=== PATIENT | female | born 1990 | race Caucasian/White ===

== ENCOUNTER 2023-03-17 09:41 | Emergency (ER) | payer OTHER, SELFPAY ==
[2023-03-17 09:55] VITALS: BP 126/77; PULSE 79; RESP 16; TEMP 37; O2SAT 99
--- NOTE | 2023-03-17 10:32 | ED.EYEPROB ---
HPI - Eye Problem General Chief complaint: Eye Problems Stated complaint: both eyes irritation Time Seen by Provider: 03/17/23 10:32 Source: patient Mode of arrival: ambulatory Limitations: no limitations History of Present Illness HPI Narrative: 32 y/o female presented for c/o left eye redness, swelling, drainage, and irritation worsening for 3 days. Reports the right eye appeared red with yellow drainage this morning. Reports her dtr had similar symptoms one week ago. Denies headache, photophobia, fb sensation, trauma/injury. chief complaint: eye pain Related Data Home Medications Medication Instructions Recorded Confirmed levothyroxine 200 mcg tablet mcg 03/17/23 Allergies Allergy/AdvReac Type Severity Reaction Status Date / Time amoxicillin [From Augmentin] Allergy Other Verified 03/17/23 10:01 clavulanic acid Allergy Other Verified 03/17/23 10:01 [From Augmentin] Review of Systems Review of Systems: CONSTITUTIONAL: Denies body aches, fever, chills EYES:Endorses swelling, redness and irritation to right eye; denies FB sensation, photophobia, visual changes ENT: Denies rhinorrhea, congestion, sore throat, or otalgia. CARDIOVASCULAR: Denies chest pain, palpitations RESPIRATORY: Denies cough or dyspnea. GASTROINTESTINAL: Denies abdominal pain, nausea, vomiting, or diarrhea. SKIN: Denies rash, itching, or wounds. MUSCULOSKELETAL: Denies back pain, joint pain, or myalgia. NEUROLOGIC: Denies headache, numbness, tingling, or weakness. All systems reviewed & are unremarkable except as noted in HPI and below PMFSH Past Medical History Medical History (Updated 03/17/23 @ 10:39 by Opal Adamson APRN) No pertinent past medical history Comments At time of signature, I have reviewed and agree with nursing past medical, surgical, social and family history unless otherwise noted. Please see nursing chart for further information. There is no relevant family history pertinent to the presenting complaint Exam Narrative: GENERAL: Well-appearing HEAD: Normocephalic, atraumatic. EYES: Bilateral conjunctival injection, purulent drainage; left eye lid swelling/redness. PERRLA, EOMI. Lid eversion shows no FB. ENT: Mucous membranes pink and moist. No rhinorrhea. TMs normal bilaterally. Throat normal. Uvula midline. CHEST: Clear to auscultation. HEART: Regular rate and rhythm. ABDOMEN: Soft, nontender, nondistended SKIN: Warm, dry, no rash. Normal skin turgor. NEURO: No focal deficits. Alert and oriented x3 Course Course Emergency Course: Patient is aware of diagnosis, understands and agrees to treatment plan. Anticipatory guidance given. Patient agrees to follow-up as directed and is aware of reasons to seek care at the emergency department. Portions of this record may have been created with voice recognition software Level of Care: Express Care Visit Vital Signs Vital signs: Vital Signs Temperature 98.6 F 03/17/23 09:55 Pulse Rate 79 03/17/23 09:55 Respiratory Rate 16 03/17/23 09:55 Blood Pressure 126/77 03/17/23 09:55 Pulse Oximetry 99 03/17/23 09:55 Oxygen Delivery Room Air 03/17/23 09:55 Temperature 98.6 F 03/17/23 09:55 Pulse Rate 79 03/17/23 09:55 Respiratory Rate 16 03/17/23 09:55 Blood Pressure 126/77 03/17/23 09:55 Pulse Oximetry 99 03/17/23 09:55 Oxygen Delivery Room Air 03/17/23 09:55 MDM - Eye Problem MDM Narrative Medical decision making narrative: Discussed physical exam findings c/w bilateral bacterial conjunctivitis. Advised supportive measures and signs/symptoms to go to the ER. Pt is appropriate for outpt treatment and f/u. Differential Diagnosis Differential diagnosis: Likely corneal abrasion, conjunctivitis, acute iritis and other Discharge Plan Discharge Clinical Impression: Bacterial conjunctivitis Patient Disposition: Home, Self-Care Condition: Stable Instructions: Antibiotic Form,
== END 2023-03-17 10:40 | disposition home or self-care (01) ==
PROVIDERS: Emergency Provider Nurse Practitioner Family
DX: H10.9 Unspecified conjunctivitis (principal); J45.909 Unspecified asthma, uncomplicated; E89.0 Postprocedural hypothyroidism; Z85.850 Personal history of malignant neoplasm of thyroid; Z85.41 Personal history of malignant neoplasm of cervix uteri
CPT/HCPCS: 99203; G0463

== ENCOUNTER 2023-07-18 09:49 | Emergency (ER) | payer OTHER, SELFPAY ==
[2023-07-18 09:58] VITALS: BP 119/70; PULSE 83; RESP 16; TEMP 36.9; O2SAT 99
--- NOTE | 2023-07-18 10:25 | ED.URI ---
HPI - URI/Sore Throat General Chief Complaint: Upper Respiratory Infection Stated Complaint: white spots on throat .cough Time Seen by Provider: 07/18/23 10:20 Source: patient and RN notes reviewed Mode of arrival: ambulatory Limitations: no limitations History of Present Illness HPI Narrative: Patient presents today complaining a one-month history of postnasal drip. Several days ago she noted swelling in her throat and white spots with vomiting yesterday. She also reports left ear fullness and drainage. She has been taking Zyrtec without much relief. Currently rates her pain 12/23. Related Data Home Medications Medication Instructions Recorded Confirmed levothyroxine 200 mcg tablet 200 mcg PO DAILY 03/17/23 07/18/23 Allergies Allergy/AdvReac Type Severity Reaction Status Date / Time clavulanic acid Allergy Other Verified 03/17/23 10:01 [From Augmentin] Review of Systems Review of Systems: CONSTITUTIONAL: Denies body aches, fever, chills, or sweats. EYES: Denies visual changes, redness, or discharge. ENT: Denies rhinorrhea, congestion. + sore throat swelling, postnasal drip, left ear pain and drainage CARDIOVASCULAR: Denies chest pain, palpitations, or edema. RESPIRATORY: Denies cough or dyspnea. GASTROINTESTINAL: Denies abdominal pain, nausea, or diarrhea.+ vomiting GENITOURINARY: Denies dysuria or hematuria. SKIN: Denies rash, itching, or wounds. MUSCULOSKELETAL: Denies back pain, joint pain, or myalgia. NEUROLOGIC: Denies headache, numbness, tingling, or weakness. PSYCH: Denies depression or anxiety. [facility] Past Medical History Medical History No pertinent past medical history Comments At time of signature, I have reviewed and agree with nursing past medical, surgical, social and family history unless otherwise noted. Please see nursing chart for further information. There is no relevant family history pertinent to the presenting complaint Exam Narrative: GENERAL: Mildly ill appearing, well-nourished, and in no acute distress. HEAD: Normocephalic, atraumatic. EYES: EOMI. No redness or drainage. Conjunctivae normal. ENT: Mucous membranes pink and moist. Nares clear. No rhinorrhea. Right TM and canal normal. Left TM dull with swollen and erythematous canal with white material. Throat mildly erythematous and edematous. Gross dental decay. uvula midline. NECK: Normal AROM. Supple. No lymphadenopathy. CHEST: No respiratory distress. Clear to auscultation. HEART: Regular rate and rhythm. No murmur appreciated. EXTREMITIES: Normal range of motion. No edema. SKIN: Warm, dry, no rash. Capillary refill normal. Normal skin turgor. NEURO: No focal deficits. Alert and oriented x3. Gait steady. PSYCH: Normal affect. No signs of depression or anxiety. Course Course Level of Care: Express Care Visit Vital Signs Vital signs: Vital Signs Temperature 98.5 F 07/18/23 09:58 Pulse Rate 83 07/18/23 09:58 Respiratory Rate 16 07/18/23 09:58 Blood Pressure 119/70 07/18/23 09:58 Pulse Oximetry 99 07/18/23 09:58 Oxygen Delivery Room Air 07/18/23 09:58 Temperature 98.5 F 07/18/23 09:58 Pulse Rate 83 07/18/23 09:58 Respiratory Rate 16 07/18/23 09:58 Blood Pressure 119/70 07/18/23 09:58 Pulse Oximetry 99 07/18/23 09:58 Oxygen Delivery Room Air 07/18/23 09:58 Reviewed MDM - URI/Sore Throat MDM Narrative Medical decision making narrative: Rapid strep positive. Patient will be treated with amoxicillin and Ciprodex for strep throat and left otitis externa. Anticipatory guidance given. Differential Diagnosis Differential diagnosis: Likely upper respiratory infection, otitis media, viral infection, pharyngitis and other (Strep throat) Lab Data Attestation: I reviewed the patient's lab results. Labs: Strep Screen Positive Group A Strep
== END 2023-07-18 10:33 | disposition home or self-care (01) ==
PROVIDERS: Emergency Provider Nurse Practitioner
DX: J02.0 Streptococcal pharyngitis (principal); H60.502 Unspecified acute noninfective otitis externa, left ear; J45.909 Unspecified asthma, uncomplicated; E89.0 Postprocedural hypothyroidism; Z85.850 Personal history of malignant neoplasm of thyroid; Z85.41 Personal history of malignant neoplasm of cervix uteri
CPT/HCPCS: 87880; 99213; G0463